=== PATIENT | female | born 1990 | race Two or more races ===

== ENCOUNTER 2019-02-03 20:28 | Emergency (ER) | payer SELFPAY ==
[~2019-02-03] VITALS: Ht 175.3 cm; Wt 136.1 kg
[2019-02-03 20:40] VITALS: BP 162/109
[2019-02-03 21:03] LABS: BILIRUBIN,URINE NEGATIVE (NEG); CLARITY,URINE CLEAR; COLOR,URINE YELLOW; NITRITE,URINE NEGATIVE (NEG); PROTEIN,URINE NEGATIVE (NEG-TRACE)
[2019-02-03 21:16] LABS: BACTERIA,URINE FEW /HPF (0-FEW); RBC,URINE RARE /HPF (0-2); SQUAMOUS EPITHELIAL CELL,UR MANY /LPF; WBC,URINE 20-40 /HPF (0-4)
[2019-02-03 21:17] LABS: TRICHOMONAS,URINE PRESENT
--- NOTE | 2019-02-03 21:50 | PHYS DOC ---
Past Medical History Past Medical History: Other Additional Past Medical Histor: 'PRE-DIABETIC' (CEDRICK JOHNSON APRN) Past Surgical History: No Surgical History (CEDRICK JOHNSON APRN) Alcohol Use: Occasionally Drug Use: None (CEDRICK JOHNSON APRN) Adult General Chief Complaint Chief Complaint: VAGINAL PROBLEM HPI HPI 28-year-old female presents to ER for complaints of vaginal irritation and disc harge. Patient states symptoms have been ongoing for the past few days and irritation has become worse. Patient states she has had some dysuria with lower back pain. Patient reports her menstrual cycles are irregular and her last one was in November. Patient denies fever, hematuria, or concerns for STDs. Patient reports she is in a five-year relationship with her boyfriend. Patient reports she has had some left lower abdominal pain denies any nausea or vomiting. She reports her bowel movements have been regular. (CEDRICK JOHNSON APRN) Review of Systems Review of Systems Constitutional: Denies fever or chills [] Eyes: Denies change in visual acuity, redness, or eye pain [] HENT: Denies nasal congestion or sore throat [] Respiratory: Denies cough or shortness of breath [] Cardiovascular: No additional information not addressed in HPI [] GI: Denies nausea, vomiting, bloody stools or diarrhea. Reports lt lower abd pain : Denies hematuria. Reports vaginal irritation/discharge and dysuria Musculoskeletal: Denies joint pain. Reports lower back pain Integument: Denies rash or skin lesions [] Neurologic: Denies headache, focal weakness or sensory changes [] Endocrine: Denies polyuria or polydipsia [] All other systems were reviewed and found to be within normal limits, except as documented in this note. (CEDRICK JOHNSON APRN) Current Medications Current Medications Current Medications Medications (Trade) Dose Ordered Sig/William Start Time Stop Time Status Last Admin Dose Admin Cephalexin HCl (Keflex) 500 mg 1X ONCE 02/04/19 01:30 02/04/19 01:31 DC 02/04/19 02:19 500 MG (CHERYL HATCH DO) Allergies Allergies Allergies Coded Allergies Type Severity Reaction Last Updated Verified No Known Drug Allergies 02/03/19 No (CHERYL HATCH DO) Physical Exam Physical Exam Constitutional: Well developed, well nourished, no acute distress, non-toxic appearance. [] HENT: Normocephalic, atraumatic, oropharynx moist, nose normal. [] Eyes: Pupils equal, conjunctiva normal, no discharge. [] Neck: Normal range of motion, supple Cardiovascular: Heart rate regular rhythm, no murmur [] Lungs & Thorax: Bilateral breath sounds clear to auscultation- resp. equal/nonlabored Abdomen: Bowel sounds normal, soft/obese, tender lt lower abd- no rebound, no masses, no pulsatile masses. [] Skin: Warm, dry, no erythema, no rash. [] Back: No tenderness, no CVA tenderness. [] Extremities: No tenderness, no cyanosis, no clubbing, ROM intact, no edema. [] Neurologic: Alert and oriented X 3, normal motor function, normal sensory function, no focal deficits noted. [] Psychologic: Affect normal, judgement normal, mood normal. [] Pelvic Exam: RN Karma present 2139 Abdomen: Tender lt lower abd External Genitalia: Normal Skin- small rash where pt has been shaving with reddened macules- no papules/lesions/drainage Speculum: Normal vaginal mucosa, normal cervical discharge scant amt thin white- no odor. Cervical os closed Bimanual: No adnexal masses- tender lt adnexa, No CMT (REFFITT,CEDRICK Vivas APRN) Current Patient Data Vital Signs Vital Signs Date Time Temp Pulse Resp B/P (MAP) Pulse Ox O2 Delivery O2 Flow Rate FiO2 02/03/19 20:40 98.3 88 16 162/109 (126) 97 Room Air 98.3 (HATCH,CHERYL R DO) Lab Values Laboratory Tests Test 02/03/19 20:40 02/03/19 20:42 02/03/19 21:35 Urine Collection Type Unknown Urine Color Yellow Urine Clarity Clear Urine pH 6.0 Urine Specific [place] 1.025 Urine Protein Negative mg/dL (NEG-TRACE) Urine Glucose (UA) Negative mg/dL (NEG) Urine Ketones (Stick) Negative mg/dL (NEG) Urine Blood Negative (NEG) Urine Nitrite Negative (NEG) Urine Bilirubin Negative (NEG) Urine Urobilinogen Dipstick 1.0 mg/dL (0.2 mg/dL) Urine Leukocyte Esterase Large (NEG) Urine RBC Rare /HPF (0-2) Urine WBC 20-40 /HPF (0-4) Urine Squamous Epithelial Cells Many /LPF Urine Bacteria Few /HPF (0-FEW) Urine Mucus Marked /LPF Urine Trichomonas Present POC Urine HCG, Qualitative Hcg negative (Negative) Chlamydia DNA Probe Negative (Negative) Neisseria gonorrhoeae DNA Probe Negative (Negative) Microbiology 02/03/19 Wet Prep - Final, Complete 02/03/19 Urine Culture - Final, Complete 02/03/19 Urine Culture Result 1 (MAGAN) - Final, Complete (CHERYL HATCH DO) EKG EKG [] (CEDRICK JOHNSON APRN) Radiology/Procedures Radiology/Procedures [PROCEDURE: PELVIS W/TV INDICATION: Left adnexal pain COMPARISON: None. TECHNIQUE: Grayscale and color ultrasound images uterus and adnexa. Transabdominal and transvaginal images obtained. FINDINGS: Uterus: 74 x 46 x 35 mm. Endometrial Stripe: 5 mm. Some heterogeneity to the myometrium. Right Ovary: 27 x 15 x 18 mm. Left Ovary: 40 x 15 x 25 mm. Vascular flow identified to bilateral ovaries. Nabothian cysts are identified. IMPRESSION: 1. Vascular flow to the bilateral ovaries. 2. Nabothian cysts. Electronically signed by: Valentina Monzon MD (02/04/2019 2:07 AM) [facility] DICTATED and SIGNED BY: VALENTINA MONZON MD DATE: 02/04/19 0207 (CEDRICK JOHNSON APRN) Course & Med Decision Making Course & Med Decision Making Pertinent Labs and Imaging studies reviewed. (See chart for details) Patient was evaluated in the ER for complaints of vaginal irritation. Labs show patient had a UTI and pelvic exam wet mount finding suggestive of bacterial vaginosis on her wet mount. US was obtain as patient had left adnexal tenderness on exam with ultrasound report of "Nabothian cysts" otherwise no acute findings. Test results were discussed with patient with boyfriend at bedside. Pt has no concerns for other STDs as prophylactic tx was discussed with pending GC/chlamydia- she is wanting to hold off on tx and will f/u on results in 2-3 days. Patient was given dose of Keflex while in the ER will be provided with Keflex and Flagyl prescriptions. Patient has been afebrile and nontoxic in appearance. In-depth conversation had with patient as she is attempting to become . Will provide [facility] referral info with discharge paperwork with pt planning on calling to schedule appt. Education provided on signs and symptoms to return to ER. Discharge instructions were discussed. Patient to follow-up with primary care physician if symptoms persist or with any concerns. (CEDRICK JOHNSON APRN) Dragon Disclaimer Dragon Disclaimer This electronic medical record was generated, in whole or in part, using a voice recognition dictation system. (CEDRICK JOHNSON APRN) Departure Departure Impression: Primary Impression: Urinary tract infection Additional Impression: Bacterial vaginosis Disposition: HOME, SELF-CARE Condition: STABLE Referrals: NO PCP (PCP) Patient Instructions: Bacterial Vaginosis, Urinary Tract Infection Additional Instructions: Avoid any deodorant type vaginal products to avoid further irritation. Avoid shaving or itching your vaginal area until irritation subsides. Follow-up with your primary doctor or [facility] doctor for re-evaluation and further care. Tylenol and/or ibuprofen as needed for pain as directed on container. Drink plenty of water daily. Follow-up on your test results in 2-3 days with medical records. Scripts Metronidazole (FLAGYL) 500 Mg Tablet 1 TAB PO BID, #14 TAB 0 Refills Avoid alcohol products while taking this medication and for 3 days following completion of the prescription Prov: CEDRICK JOHNSON APRN 02/03/19 Cephalexin (KEFLEX) 500 Mg Capsule 1 CAP PO BID, #14 CAP 0 Refills Prov: CEDRICK JOHNSON APRN 02/03/19 Attending Signature Attending Signature I have reviewed the PA/911 OPERATOR's note and plan of care. I was available for consultation as needed during the patient's visit in the emergency department. I agree with the clinical impression, plan, and disposition. (CHERYL HATCH DO) Problem Qualifiers CEDRICK JOHNSON APRN Feb 03, 2019 21:49 CHERYL HATCH DO Feb 07, 2019 19:42
[2019-02-03] MEDS ORDERED: CEPH-264 PO (23:40)
[2019-02-03] MEDS ORDERED: METR500T PO (23:40)
[2019-02-04] MEDS ORDERED: CEPHALEXIN 250 MG CAPSULE. PO ONE (01:30)
--- NOTE | 2019-02-04 02:11 | RAD ---
INDICATION: Left adnexal pain COMPARISON: None. TECHNIQUE: Grayscale and color ultrasound images uterus and adnexa. Transabdominal and transvaginal images obtained. FINDINGS: Uterus: 74 x 46 x 35 mm. Endometrial Stripe: 5 mm. Some heterogeneity to the myometrium. Right Ovary: 27 x 15 x 18 mm. Left Ovary: 40 x 15 x 25 mm. Vascular flow identified to bilateral ovaries. Nabothian cysts are identified. IMPRESSION: 1. Vascular flow to the bilateral ovaries. 2. Nabothian cysts. Electronically signed by: Aba May MD (02/04/2019 2:07 AM) [facility]
[2019-02-06 18:09] LABS: GC PROBE Negative (Negative)
== END 2019-02-04 02:22 | disposition home or self-care (01) ==
LOC: ER 20:28
DX: N39.0 Urinary tract infection, site not specified (principal); N76.0 Acute vaginitis; B96.89 Other specified bacterial agents as the cause of diseases classified elsewhere
CPT/HCPCS: 36415; 76830; 76856; 81001; 81025; 87086; 87491; 87591; 99285; Q0111

== ENCOUNTER 2019-06-20 19:11 | Emergency (ER) | payer SELFPAY ==
[~2019-06-20] VITALS: Ht 175.3 cm; Wt 90.7 kg
[~2019-06-20 19:11] MED LIST: CEPH-264 PO; METR500T PO
[2019-06-20 19:26] VITALS: BP 139/74
[2019-06-20] MEDS ORDERED: AMOX875T PO (20:22)
--- NOTE | 2019-06-20 20:24 | PHYS DOC ---
Past Medical History Past Medical History: Other Additional Past Medical Histor: 'PRE-DIABETIC' (CHERYL MARIE APRN) Past Surgical History: No Surgical History (CHERYL MARIE APRN) Alcohol Use: Occasionally Drug Use: None (CHERYL MARIE APRN) Attending Signature I have participated in the care of this patient and I have reviewed and agree with all pertinent clinical information above including history, exam, and recommendations. (LEEANN ANNE MD) Adult General Chief Complaint Chief Complaint: SORE THROAT HPI HPI Patient is a 28 year old female who presents with sore throat since yesterday. Patient denies fever that temperature on arrival to the ER is 99.9F. The patient denies any congestion or runny nose. The patient states that she's had issues was strep throat in the past. (CHERYL MARIE APRN) Review of Systems Review of Systems Constitutional: Denies fever or chills [] Eyes: Denies change in visual acuity, redness, or eye pain [] HENT: Reports sore throat. Respiratory: Denies cough or shortness of breath [] Cardiovascular: No additional information not addressed in HPI [] GI: Denies abdominal pain, nausea, vomiting, bloody stools or diarrhea [] : Denies dysuria or hematuria [] Musculoskeletal: Denies back pain or joint pain [] Integument: Denies rash or skin lesions [] Neurologic: Denies headache, focal weakness or sensory changes [] Endocrine: Denies polyuria or polydipsia [] Complete systems were reviewed and found to be within normal limits, except as documented in this note. (CHERYL MARIE APRN) Allergies Allergies Allergies Coded Allergies Type Severity Reaction Last Updated Verified No Known Drug Allergies 02/03/19 No (LEEANN ANNE MD) Physical Exam Physical Exam Constitutional: Well developed, well nourished, no acute distress, non-toxic appearance. [] HENT: Normocephalic, atraumatic, bilateral external ears normal, oropharynx moist, has tonsils that are 3/4 with uvula midline with white oral exudates, n ose normal. [] Eyes: PERRLA, EOMI, conjunctiva normal, no discharge. [] Neck: Normal range of motion, no tenderness, supple, no stridor. [] Skin: Warm, dry, no erythema, no rash. [] Back: No tenderness, no CVA tenderness. [] Extremities: No tenderness, no cyanosis, no clubbing, ROM intact, no edema. [] Neurologic: Alert and oriented X 3, normal motor function, normal sensory fun ction, no focal deficits noted. [] Psychologic: Affect normal, judgement normal, mood normal. [] (CHERYL MARIE APRN) Current Patient Data Vital Signs Vital Signs Date Time Temp Pulse Resp B/P (MAP) Pulse Ox O2 Delivery O2 Flow Rate FiO2 06/20/19 19:26 99.9 102 18 139/74 (95) 95 Room Air 99.9 (LEEANN ANNE MD) EKG EKG [] (CHERYL MARIE APRN) Radiology/Procedures Radiology/Procedures [] (CHERYL MARIE APRN) Course & Med Decision Making Course & Med Decision Making Pertinent Labs and Imaging studies reviewed. (See chart for details) The patient has exudate on throat. Will discharge on Amoxcillin. (CHERYL MARIE APRN) Dragon Disclaimer Dragon Disclaimer This electronic medical record was generated, in whole or in part, using a voice recognition dictation system. (CHERYL MARIE APRN) Departure Departure Impression: Primary Impression: Tonsillitis with exudate Disposition: HOME, SELF-CARE Condition: STABLE Referrals: NO PCP (PCP) Patient Instructions: Strep Throat Additional Instructions: Thank you for visiting [facility]. We appreciate you trusting us with your care. If any additional problems come up don't hesitate to return to visit us. Please follow up with your primary care provider so they can plan additional care if needed and know about the problem that you had. If symptoms worsen come back to the Emergency Department. Any concerning symptoms that start such as chest pain, shortness of air, weakness or numbness on one side of the body, running high fevers or any other concerning symptoms return to the ER. You have been prescribed an antibiotic today to help fight your infection. Please take all of the antibiotic as directed. If after 48 hours the infection is not improving, please return for more care. If the infection worsens, return to ER for additional care. Scripts Amoxicillin (AMOXICILLIN) 875 Mg Tablet 1 TAB PO BID for 10 Days, #20 TAB Prov: CHERYL MARIE APRN 06/20/19 CHERYL MARIE APRN Jun 20, 2019 20:24 LEEANN ANNE MD Jun 21, 2019 02:14
== END 2019-06-20 20:35 | disposition home or self-care (01) ==
LOC: ER 19:11
DX: J03.90 Acute tonsillitis, unspecified (principal)
CPT/HCPCS: 87880; 99283